=== PATIENT | male | born 1935 | race Caucasian/White ===

== ENCOUNTER 2016-10-06 15:42 | Emergency (ER) | payer MEDICARE, OTHER ==
[~2016-10-06] VITALS: Ht 180.3 cm; Wt 105.0 kg
[2016-10-06 15:44] VITALS: BP 178/84; PULSE 62; RESP 20; TEMP 97.8; O2SAT 94
--- NOTE | 2016-10-06 17:02 | PD ---
HPI Chief Complaint: Flank/Kidney Pain Time Seen by Provider: 16:59 Travel History International Travel<30 days: Yes Contact w/Intl Traveler<30days: Yes Name of Country Traveled to: [place] Traveled to known affect area: No History of Present Illness HPI Patient is a 81-year-old male presenting to emergency for evaluation of right lower back pain that radiates to the right lower quadrant. Patient states the pain started around 1:00 this afternoon. He reports a history of kidney stones 6 times in the past. He denies any nausea, vomiting, fever, chills, chest pain , shortness of breath or dysuria. He currently reports the pain as a 6 out of 10 and describes as aching and sore. PFSH Past Medical History Arthritis: Yes Hypertension: Yes Kidney Stones: Yes Past Surgical History Other Surgery: Yes (hernia repair, lithotripsy) Social History Alcohol Use: No Tobacco Use: No Substance Use: No Allergies-Medications (Allergen,Severity, Reaction): Coded Allergies: No Known Allergies (Unverified , 10/06/16) Reported Meds & Prescriptions Reported Meds & Active Scripts Active Flomax (Tamsulosin HCl) 0.4 Mg Cap 0.4 Mg PO HS Zofran Odt (Ondansetron Odt) 4 Mg Tab 4 Mg SL Q6HR PRN Percocet (Oxycodone-Acetaminophen) 5-325 mg Tab 1 Tab PO Q6H PRN Review of Systems Except as stated in HPI: all other systems reviewed are Neg Cardiovascular: No: Palpitations Respiratory: No: Shortness of Breath Gastrointestinal: Positive: Abdominal Pain, No: Nausea, Vomiting Genitourinary: No: Dysuria, Hematuria Musculoskeletal: Positive: Myalgias, Pain Physical Exam Narrative GENERAL: Overweight, well-developed, alert elderly gentleman. Resting comfortably in no acute distress. SKIN: Warm and dry. HEAD: Atraumatic. Normocephalic. EYES: Pupils equal and round. No scleral icterus. No injection or drainage. ENT: No nasal bleeding or discharge. Mucous membranes pink and moist. NECK: Trachea midline. No JVD. CARDIOVASCULAR: Regular rate and rhythm. No murmur appreciated. RESPIRATORY: No accessory muscle use. Clear to auscultation. Breath sounds equal bilaterally. GASTROINTESTINAL: Abdomen soft, mildly tender to palpation right lower quadrant. , nondistended. Hepatic and splenic margins not palpable. No CVAT bilaterally. Tenderness palpation paraspinal musculature in the lumbar region on the right. MUSCULOSKELETAL: No obvious deformities. No clubbing. No cyanosis. No edema. NEUROLOGICAL: Awake and alert. No obvious cranial nerve deficits. Motor grossly within normal limits. Normal speech. PSYCHIATRIC: Appropriate mood and affect; insight and judgment normal. Data Data Last Documented VS Vital Signs Date Time Temp Pulse Resp B/P Pulse Ox O2 Delivery O2 Flow Rate FiO2 10/06/16 15:44 97.8 62 20 178/84 94 Room Air Orders Complete Blood Count With Diff (10/06/16 16:46) Comprehensive Metabolic Panel (10/06/16 16:46) Urinalysis - C+S If Indicated (10/06/16 16:46) Ct Abd/Pel W/O Iv Contrast (10/06/16 16:46) ^ Saline Lock (10/06/16 20:06) Ondansetron Inj (Zofran Inj) (10/06/16 20:15) Morphine Inj (Morphine Inj) (10/06/16 20:15) Tamsulosin (Flomax) (10/06/16 20:15) Sodium Chlorid 0.9% 500 Ml Inj (Ns 500 M (10/06/16 20:15) Labs Laboratory Tests Test 10/06/16 10/06/16 17:19 17:22 Urine Color YELLOW Urine Turbidity CLEAR Urine pH 5.0 Urine Specific [place] 1.016 Urine Protein NEG mg/dL Urine Glucose (UA) NEG mg/dL Urine Ketones NEG mg/dL Urine Occult Blood MOD Urine Nitrite NEG Urine Bilirubin NEG Urine Urobilinogen LESS THAN 2.0 MG/DL Urine Leukocyte Esterase NEG Urine RBC 97 /hpf Urine WBC 2 /hpf Urine Squamous Epithelial <1 /hpf Cells Urine Hyaline Casts 1 /lpf Urine Mucus FEW /lpf Microscopic Urinalysis Comment CULT NOT INDICATED White Blood Count 15.6 TH/MM3 Red Blood Count 3.78 MIL/MM3 Hemoglobin 13.2 GM/DL Hematocrit 38.9 % Mean Corpuscular Volume 102.9 FL Mean Corpuscular Hemoglobin 35.0 PG Mean Corpuscular Hemoglobin 34.1 % Concent Red Cell Distribution Width 17.5 % Platelet Count 141 TH/MM3 Mean Platelet Volume 9.1 FL Neutrophils (%) (Auto) 74.6 % Lymphocytes (%) (Auto) 15.3 % Monocytes (%) (Auto) 7.9 % Eosinophils (%) (Auto) 1.7 % Basophils (%) (Auto) 0.5 % Neutrophils # (Auto) 11.6 TH/MM3 Lymphocytes # (Auto) 2.4 TH/MM3 Monocytes # (Auto) 1.2 TH/MM3 Eosinophils # (Auto) 0.3 TH/MM3 Basophils # (Auto) 0.1 TH/MM3 CBC Comment DIFF FINAL Differential Comment Sodium Level 144 MEQ/L Potassium Level 4.1 MEQ/L Chloride Level 108 MEQ/L Carbon Dioxide Level 24.5 MEQ/L Anion Gap 12 MEQ/L Blood Urea Nitrogen 24 MG/DL Creatinine 1.32 MG/DL Estimat Glomerular Filtration 52 ML/MIN Rate Random Glucose 104 MG/DL Calcium Level 8.3 MG/DL Total Bilirubin 0.6 MG/DL Aspartate Amino Transf 27 U/L (AST/SGOT) Alanine Aminotransferase 34 U/L (ALT/SGPT) Alkaline Phosphatase 85 U/L Total Protein 7.3 GM/DL Albumin 3.9 GM/DL MDM Medical Decision Making Medical Screen Exam Complete: Yes Emergency Medical Condition: Yes Interpretation(s) Vital Signs Date Time Temp Pulse Resp B/P Pulse Ox O2 Delivery O2 Flow Rate FiO2 10/06/16 15:44 97.8 62 20 178/84 94 Room Air Differential Diagnosis Appendicitis versus muscle strain versus muscle spasm versus kidney stone versus urinary tract infection Narrative Course Patient is an 81-year-old male presenting to emergency for evaluation of right lower back pain that radiates to the abdomen. Pain started 4 hours ago. Patient and his spouse did get off of a cruise this morning and he has been lifting heavy luggage. Patient has no urinary symptoms at this time. His vital signs are stable, he is afebrile well oxygenated on room air. Workup initiated in triage, care patient be transferred to provide her with a medical bed is available. Scripts Tamsulosin (Flomax)0.4 Mg Cap0.4 Mg PO HS #7 CAP Ref 0 Prov:Jess Duran MD 10/06/16 Ondansetron Odt (Zofran Odt)4 Mg Tab4 Mg SL Q6HR PRN (Nausea/Vomiting) #10 TAB Ref 0 Prov:Jess Duran MD 10/06/16 Oxycodone-Acetaminophen (Percocet)5-325 mg Tab1 Tab PO Q6H PRN (PAIN) #12 TAB Ref 0 Prov:Jess Duran MD 10/06/16 Arti Gresham Oct 06, 2016 17:02
--- NOTE | 2016-10-06 17:52 | RADRPT ---
EXAM DATE/TIME: 10/06/2016 17:30 [facility] COMPARISON: No previous studies available for comparison. INDICATIONS : Right flank abdominal pain starting today. ORAL CONTRAST: No oral contrast ingested. RADIATION DOSE: 17.88 CTDIvol (mGy) MEDICAL HISTORY : Cardiovascular disease. Hypertension. SURGICAL HISTORY : None. ENCOUNTER: Initial ACUITY: 1 day PAIN SCALE: 5/10 LOCATION: Right flank Abdomen/pelvis TECHNIQUE: Volumetric scanning of the abdomen and pelvis was performed. Using automated exposure control and ad justment of the mA and/or kV according to patient size, radiation dose was kept as low as reasonably achievable to obtain optimal diagnostic quality images. FINDINGS: LOWER LUNGS: The visualized lower lungs are clear. LIVER: Homogeneous density without lesion. There is no dilation of the biliary tree. No calcified gallston es. SPLEEN: Normal size without lesion. PANCREAS: Within normal limits. KIDNEYS: 5 mm stone of the distal right ureter. There is associated mild hydronephrosis and hydroureter. There is also right perinephric stranding. Scattered sub-3 mm nonobstructing stones are seen in both kidne ys. There is also at approximately 10 mm nonobstructing stone of the left lower pole. ADRENAL GLANDS: Within normal limits. VASCULAR: There is no aortic aneurysm. BOWEL/MESENTERY: The stomach, small bowel, and colon demonstrate no acute abnormality. There is no free intraperitone al air or fluid. There is moderate diverticulosis of the sigmoid colon. ABDOMINAL WALL: Within normal limits. RETROPERITONEUM: There is no lymphadenopathy. BLADDER: 23 mm right-sided diverticulum. Otherwise normal appearing urinary bladder. REPRODUCTIVE: Within normal limits. INGUINAL: Left inguinal soft tissues appear mildly edematous or scarred. Has there been previous inguinal herni a repair on this side. MUSCULOSKELETAL: No acute bony abnormality demonstrated. CONCLUSION: 1. 5 mm stone of the distal right ureter causing mild to moderate obstructive uropathy. 2. Bilateral nonobstructing nephrolithiasis. 3. Sigmoid colon diverticulosis but no acute diverticulitis. 4. Nonspecific left inguinal edema versus scarring. 5. Bladder diverticulum with a narrow neck. 6. Aortoiliac atherosclerosis and tortuosity. No abdominal aneurysm. Clarence Lagunas MD on October 06, 2016 at 17:46 Board Certified Radiologist. This report was verified electronically.
[2016-10-06 18:01] LABS: BLOOD, URINE MOD (NEG); COMMENT (UR) CULT NOT INDICATED; CULTURE IF INDICATED CULT NOT INDICATED; GLUCOSE,URINE NEG (NEG); HYALINE CAST, URINE 1 /lpf (RARE); KETONE, URINE NEG (NEG); MUCUS URINE FEW /lpf (OCC); NITRITE,URINE NEG (NEG); SQUAMOUS EPITHELIAL CELL URINE <1 /hpf (0-5); URINE COLOR YELLOW (YELLW/STRAW)
[2016-10-06 18:03] LABS: AUTOMATED NEUTROPHIL # 11.6 TH/MM3 (1.8-7.7); BASOPHIL # 0.1 TH/MM3 (0-0.2); BASOPHIL % 0.5 % (0.0-2.0); EOSINOPHIL # 0.3 TH/MM3 (0-0.4); EOSINOPHIL % 1.7 % (0.0-4.0); HEMATOCRIT 38.9 % (39.0-51.0); HEMO FLAGS DIFF FINAL; LYMPH % 15.3 % (9.0-44.0); LYMPHOCYTE # 2.4 TH/MM3 (1.0-4.8); MEAN CELL VOLUME 102.9 FL (80.0-100.0); MEAN CORPUSCULAR HGB CONC 34.1 % (32.0-36.0); MONO % 7.9 % (0.0-8.0); NEUT % 74.6 % (16.0-70.0); PLATELET COUNT 141 TH/MM3 (150-450); RED BLOOD COUNT 3.78 MIL/MM3 (4.50-5.90); RED CELL DISTRIBUTION WIDTH 17.5 % (11.6-17.2); WHITE BLOOD COUNT 15.6 TH/MM3 (4.0-11.0)
[2016-10-06 18:49] LABS: ALKALINE PHOSPHATASE 85 U/L (45-117); TOTAL BILIRUBIN ADULT 0.6 MG/DL (0.2-1.0)
[2016-10-06 18:53] LABS: ALT (GPT) 34 U/L (12-78); ANION GAP 12 MEQ/L (5-15); AST (GOT) 27 U/L (15-37); BICARBONATE 24.5 MEQ/L (21.0-32.0); BLOOD UREA NITROGEN 24 MG/DL (7-18); CHLORIDE 108 MEQ/L (98-107); GLOMERULAR FILTRATION RATE 52 ML/MIN (>89); POTASSIUM 4.1 MEQ/L (3.5-5.1); SODIUM (NA) 144 MEQ/L (136-145)
[2016-10-06] MEDS ORDERED: ZOFR4TAB3 SL (20:13)
[2016-10-06] MEDS ORDERED: TAMS5CAP PO (20:13)
[2016-10-06] MEDS ORDERED: PERC5TAB12 PO (20:13)
--- NOTE | 2016-10-06 20:14 | PD ---
Physical Exam Date Seen by Provider: Oct 06, 2016 Time Seen by Provider: 20:07 Narrative Accepted in transfer of care from triage provider GENERAL: Well-developed well-nourished male in no acute distress no respiratory for distress. SKIN: Warm and dry. HEAD: Normocephalic. EYES: No scleral icterus. No injection or drainage. NECK: Supple, trachea midline. No JVD or lymphadenopathy. CARDIOVASCULAR: Regular rate and rhythm without murmurs, gallops, or rubs. RESPIRATORY: Breath sounds equal bilaterally. No accessory muscle use. GASTROINTESTINAL: Abdomen soft, non-tender, nondistended. MUSCULOSKELETAL: No cyanosis, or edema. BACK: Nontender without obvious deformity. No CVA tenderness. Data Data Last Documented VS Vital Signs Date Time Temp Pulse Resp B/P Pulse Ox O2 Delivery O2 Flow Rate FiO2 10/06/16 21:00 66 20 171/78 96 Room Air 10/06/16 15:44 97.8 Orders Complete Blood Count With Diff (10/06/16 16:46) Comprehensive Metabolic Panel (10/06/16 16:46) Urinalysis - C+S If Indicated (10/06/16 16:46) Ct Abd/Pel W/O Iv Contrast (10/06/16 16:46) ^ Saline Lock (10/06/16 20:06) Ondansetron Inj (Zofran Inj) (10/06/16 20:15) Morphine Inj (Morphine Inj) (10/06/16 20:15) Tamsulosin (Flomax) (10/06/16 20:15) Sodium Chlorid 0.9% 500 Ml Inj (Ns 500 M (10/06/16 20:15) Ketorolac Inj (Toradol Inj) (10/06/16 22:00) Labs Laboratory Tests Test 10/06/16 10/06/16 17:19 17:22 Urine Color YELLOW Urine Turbidity CLEAR Urine pH 5.0 Urine Specific [place] 1.016 Urine Protein NEG mg/dL Urine Glucose (UA) NEG mg/dL Urine Ketones NEG mg/dL Urine Occult Blood MOD Urine Nitrite NEG Urine Bilirubin NEG Urine Urobilinogen LESS THAN 2.0 MG/DL Urine Leukocyte Esterase NEG Urine RBC 97 /hpf Urine WBC 2 /hpf Urine Squamous Epithelial <1 /hpf Cells Urine Hyaline Casts 1 /lpf Urine Mucus FEW /lpf Microscopic Urinalysis Comment CULT NOT INDICATED White Blood Count 15.6 TH/MM3 Red Blood Count 3.78 MIL/MM3 Hemoglobin 13.2 GM/DL Hematocrit 38.9 % Mean Corpuscular Volume 102.9 FL Mean Corpuscular Hemoglobin 35.0 PG Mean Corpuscular Hemoglobin 34.1 % Concent Red Cell Distribution Width 17.5 % Platelet Count 141 TH/MM3 Mean Platelet Volume 9.1 FL Neutrophils (%) (Auto) 74.6 % Lymphocytes (%) (Auto) 15.3 % Monocytes (%) (Auto) 7.9 % Eosinophils (%) (Auto) 1.7 % Basophils (%) (Auto) 0.5 % Neutrophils # (Auto) 11.6 TH/MM3 Lymphocytes # (Auto) 2.4 TH/MM3 Monocytes # (Auto) 1.2 TH/MM3 Eosinophils # (Auto) 0.3 TH/MM3 Basophils # (Auto) 0.1 TH/MM3 CBC Comment DIFF FINAL Differential Comment Sodium Level 144 MEQ/L Potassium Level 4.1 MEQ/L Chloride Level 108 MEQ/L Carbon Dioxide Level 24.5 MEQ/L Anion Gap 12 MEQ/L Blood Urea Nitrogen 24 MG/DL Creatinine 1.32 MG/DL Estimat Glomerular Filtration 52 ML/MIN Rate Random Glucose 104 MG/DL Calcium Level 8.3 MG/DL Total Bilirubin 0.6 MG/DL Aspartate Amino Transf 27 U/L (AST/SGOT) Alanine Aminotransferase 34 U/L (ALT/SGPT) Alkaline Phosphatase 85 U/L Total Protein 7.3 GM/DL Albumin 3.9 GM/DL [facility] Medical Record Reviewed: Yes Supervised Visit with RONNIE: Yes Interpretation(s) Vital Signs Date Time Temp Pulse Resp B/P Pulse Ox O2 Delivery O2 Flow Rate FiO2 10/06/16 15:44 97.8 62 20 178/84 94 Room Air CBC & BMP Diagram 10/06/16 17:22 Last Impressions Abdomen/Pelvis CT 10/06/16 1646 Signed Impressions: Service Date/Time: Thursday, October 06, 2016 17:30 - CONCLUSION: 1. 5 mm stone of the distal right ureter causing mild to moderate obstructive uropathy. 2. Bilateral nonobstructing nephrolithiasis. 3. Sigmoid colon diverticulosis but no acute diverticulitis. 4. Nonspecific left inguinal edema versus scarring. 5. Bladder diverticulum with a narrow neck. 6. Aortoiliac atherosclerosis and tortuosity. No abdominal aneurysm. Clarence Lagunas MD Differential Diagnosis Renal colic, obstructive uropathy, UTI, also to consider biliary colic appendicitis intestinal ischemia abdominal aortic aneurysm Narrative Course 81-year-old male en route from [facility] on his way home to [place] with known history of kidney stones presents to the emergency department for sudden onset flank pain radiating to the right lower quadrant consistent with symptoms of previous kidney stones. Patient was seen by his primary care provider prior to leaving home and had plain film x-ray that showed bilateral kidney stones. Patient has done well until today. Patient is returning home from a cruise. Patient states around 1:00 started noticing sudden discomfort in the flank to right lower quadrant area with associated nausea. Patient denies any fever chills vomiting generalized abdominal pain dysuria frequency urgency melena hematochezia or change in bowel movements. Patient rates pain 7/10 in intensity. Patient states upon arrival pain had been 5/10 in intensity. Patient reports typically he responds better to IV pain medication. Patient is identified to have some renal insufficiency patient does not know his baseline renal function. Patient states that he does take medication for blood pressure management and some "kidney pills". Patient denies any known cardiac disease dyslipidemia or diabetes. Patient does have leukocytosis but no evidence for pyelonephritis or infection most likely reflective of hydration status and stress demargination. At 9:05 PM patient feels significantly improved discomfort has decreased from 7/ 10 intensity down to 2/10 in intensity and patient is desirous of being discharged to home. Spouse is at bedside and able to drive for patient and knot picker cloth his prescriptions. Patient is encouraged to monitor his temperature closely and is encouraged to return to this facility or nursing facility while he is traveling back home should he have any recurrence of symptoms or develop any fever 100.4F or greater. @ 22:00 at time of discharge patient reports developing recurrent pain after ambulating the hallways -- Toradol 30 mg iv as a one time dosing administered Diagnosis Primary Impression: Ureterolithiasis Additional Impressions: Hydronephrosis with ureteral calculus Renal insufficiency Referrals: Urologist call for appointment Patient Instructions: Narcotic given in the ED, General Instructions Additional Instruction: Increase fluid hydration Follow-up with urologist Strain urine Take medications as prescribed as needed for pain and related nausea vomiting; be aware that narcotic pain medication may impair judgment, delay reaction time , increased risk for fall, cause constipation, do not drive while taking this medication. Return to the emergency department for any concerns or change in condition Take acetaminophen as needed for fever 100.4F or greater Med/Other Pt SpecificInfo: Prescription(s) given Scripts Tamsulosin (Flomax)0.4 Mg Cap0.4 Mg PO HS #7 CAP Ref 0 Prov:Jess Duran MD 10/06/16 Ondansetron Odt (Zofran Odt)4 Mg Tab4 Mg SL Q6HR PRN (Nausea/Vomiting) #10 TAB Ref 0 Prov:Jess Duran MD 10/06/16 Oxycodone-Acetaminophen (Percocet)5-325 mg Tab1 Tab PO Q6H PRN (PAIN) #12 TAB Ref 0 Prov:Jess Duran MD 10/06/16 Disposition: 01 DISCHARGE HOME Condition: Stable Jess Duran MD Oct 06, 2016 20:14
[2016-10-06] MEDS ORDERED: TAMSULOSIN HCL 0.4 MG CAP PO ONE (20:15)
[2016-10-06] MEDS ORDERED: MORPHINE SULFATE 4 MG/ML INJ IV PUSH ONE (20:15)
[2016-10-06] MEDS ORDERED: SODIUM CHLORID 0.9% 500 ML INJ 500 ML IV ONE (20:15)
[2016-10-06] MEDS ORDERED: ONDANSETRON HCL 4 MG/2 ML VIAL IV PUSH ONE (20:15)
[2016-10-06] MEDS ORDERED: ASPI81CH7 CHEW (20:31)
[2016-10-06] MEDS ORDERED: ZIAC5TAB PO (20:31)
[2016-10-06] MEDS ORDERED: POTA10TA15 PO (20:31)
[2016-10-06 21:00] VITALS: BP 171/78; PULSE 66; RESP 20; O2SAT 96
[2016-10-06] MEDS ORDERED: KETOROLAC TROMETHAMINE 30 MG/ML (IVP) VIAL IV PUSH ONE (22:00)
== END 2016-10-06 22:21 | disposition home or self-care (01) ==
LOC: NEPC 15:42
DX: N13.2 Hydronephrosis with renal and ureteral calculous obstruction (principal); N28.9 Disorder of kidney and ureter, unspecified; I10 Essential (primary) hypertension
CPT/HCPCS: 74176; 80053; 81001; 85025; 96374; 96375; 99284; J2270; J2405; J7040